=== PATIENT | male | born 1975 | race Caucasian/White ===

== ENCOUNTER 2019-07-28 19:38 | Emergency (ER) | payer BC ==
[~2019-07-28] VITALS: Ht 177.8 cm; Wt 92.6 kg
[2019-07-28 19:51] LABS: BASOPHILS # (AUTO) 0.01 x10^3/uL (0-0.1); BASOPHILS % (AUTO) 0 % (0-1); EOSINOPHILS # (AUTO) 0.08 x10^3/uL (0-0.4); EOSINOPHILS % (AUTO) 1 % (1-7); LYMPHOCYTES # (AUTO) 2.75 x10^3/uL (1-3.4); LYMPHOCYTES % (AUTO) 33 % (22-44); MD NO; MEAN CORPUSCULAR HEMOGLOBIN 30.8 pg (27.5-34.5); MEAN CORPUSCULAR HGB CONC 33.2 g/dL (33.2-36.2); MEAN CORPUSCULAR VOLUME 92.8 fL (81-97); MEAN PLATELET VOLUME 9.7 fL (7.4-10.4); MONOCYTES # (AUTO) 1.18 x10^3/uL (0.2-0.8); MONOCYTES % (AUTO) 14 % (2-9); NEUTROPHILS # (AUTO) 4.33 x10^3/uL (1.8-6.8); NEUTROPHILS % (AUTO) 52 % (42-75); PLATELET COUNT 224 x10^3/uL (130-400); RED BLOOD COUNT 5.03 x10^6/uL (4.38-5.82); RED CELL DISTRIBUTION WIDTH 13.4 % (9.4-14.8)
[2019-07-28] MEDS ORDERED: OXYC5CAP2 PO (19:53)
[2019-07-28] MEDS ORDERED: GABA600T7 PO (19:54)
[2019-07-28] MEDS ORDERED: CLON0.5T PO (19:54)
--- NOTE | 2019-07-28 19:56 | NUR ---
[facility] KRISTINE.
--- NOTE | 2019-07-28 19:58 | NUR ---
[facility] CALLED AT 1932. PT WAS BIB [facility] AFTER BEING FOUND AT HOME ON THE KITCHEN FLOOR. PT HAD A SYNCOPAL EVENT. PT WAS FOUND BY EMS TO BE PALE AND HYPOTENSIVE. EMS CALLED A CODE C[facility]IAC. PT WAS GIVEN 324 OF ASA BY EMS AND GIVEN A 500 BOLUS OF NORMAL SALINE. PT REPORTS CENTER CHEST PAIN. PT ALSO REPORTS RIGHT SIDED RIB PAIN. PT ALSO HAS A COUGH. PT SEEN BY DR MAYNARD. CODE C[facility] CANCLED. VS STABLE. FURNITURE ASSOCIATE ON.
[2019-07-28] MEDS ORDERED: OXYcodone/APAP 10/325MG TABLET PO ONE (20:00)
[2019-07-28 20:02] LABS: INTERNATIONAL NORMALIZED RATIO 1.02 (0.93-1.1); PROTHROMBIN TIME 10.8 Seconds (9.6-11.5)
[2019-07-28 20:04] LABS: ALANINE AMINOTRANSFERASE 41 U/L (12-78); ALBUMIN 3.8 g/dL (3.4-5.0); ANION GAP 6 mmol/L (5-15); CALCIUM 8.7 mg/dL (8.5-10.1); CHLORIDE 107 mmol/L (98-107); CREATININE 1.11 mg/dL (0.7-1.3)
[2019-07-28 20:09] LABS: ALKALINE PHOSPHATASE 58 U/L (45-117); BILIRUBIN,TOTAL 0.5 mg/dL (0.2-1.0); TOTAL PROTEIN 7.8 g/dL (6.4-8.2); TROPONIN I < 0.015 ng/mL (0.000-0.045)
--- NOTE | 2019-07-28 20:09 | NUR ---
PT RM WAS MOVED TO RM 18 VSS UPDATED PT IS RESTING, NO OTHER C/O PT IS WAITING FOR IMAGING
--- NOTE | 2019-07-28 20:25 | NUR ---
PATIENT TO CT
[2019-07-28] MEDS ORDERED: OXYcodone/APAP 10/325MG TABLET ONE (20:40)
--- NOTE | 2019-07-28 20:44 | NUR ---
PATIENT MEDICATED PER EMAR, TOELRATED WELL. DENIES CHEST PAIN AT THIS TIME, STATES "THERE'S JUST A LITTLE BIT OF PRESSURE, BUT NOTHING LIKE BEFORE"
--- NOTE | 2019-07-28 21:58 | NUR ---
PT C/O LIGHT HEADNESS AT THE TIME OF ASSESS PT DC HOME ORTHO BP RECHECKED SHOWED TO DR MAYNARD ERP AT BED SIDE REASSESSED WILL GIVE ANOTHER LITER OF NS BOLUS THEN RECHECK
[2019-07-28] MEDS ORDERED: SODIUM CHLORIDE 0.9% 1,000ML IVBOLUS ONE (22:00)
[2019-07-28] MEDS ORDERED: OMNIPAQUE 350 MG/ML, 100ML BOTTLE ONE (22:31)
--- NOTE | 2019-07-28 22:34 | NUR ---
NS IS STILL INFUSING PT STATED " I FEEL BETTER NOW " UPDATED VSS
--- NOTE | 2019-07-28 23:04 | NUR ---
PT UP AMBULATED TO BATHROOM AFTER IV NS ANOTHER LITER BOLUS WAS INFUSED VSS STABLE PT STATED " I FEEL A LOT BETTER NOW " PT DENIED ANY OTHER HEADNESS OR DIZZINESS GIVEN ALL DC INSTRUCTION PT UNDERSTOOD IV WAS OUT FAMILY AT BED SIDE SUPPORTED PT PT UP AMBULATED TO CHECK OUT
[2019-07-28 23:05] VITALS: BP 119/84
== END 2019-07-28 23:07 | disposition home or self-care (01) ==
LOC: ED 21:00
DX: S20.211A Contusion of right front wall of thorax, initial encounter (principal); S30.1XXA Contusion of abdominal wall, initial encounter; R55 Syncope and collapse; W18.30XA Fall on same level, unspecified, initial encounter; Y93.89 Activity, other specified; Y92.89 Other specified places as the place of occurrence of the external cause; Y99.8 Other external cause status
CPT/HCPCS: 36415; 71045; 71275; 74177; 80047; 80053; 84484; 85025; 85610; 85730; 93005; 96360; 99284; J7030; Q9967